=== PATIENT | male | born 2000 | race American Indian/Alaskan Native ===

== ENCOUNTER 2021-06-17 15:21 | Emergency (ER) | payer SELFPAY ==
[2021-06-17] MEDS ORDERED: oxyCODONE /ACETAMINOPHEN 5-325MG TAB PO ONE (15:48)
[2021-06-17] MEDS ORDERED: TETANUS,DIPH,PERTUSS(ACELL) VACCINE 0.5 ML SYRINGE IM ONE (15:48)
[2021-06-17] MEDS ORDERED: SODIUM CHLORIDE 0.9% IRR 500 ML BOTTLE IR ONE (15:49)
[2021-06-17] MEDS ORDERED: SODIUM CHLORIDE 0.9% 1000 ML 1,000 ML IV ONE ×2 (16:09→17:28)
--- NOTE | 2021-06-17 16:14 | Emergency Department Report ---
ED General Adult HPI - General Chief complaint: Overdose Stated complaint: PASSED OUT Time Seen by Provider: 06/17/21 15:42 Source: patient Mode of arrival: Ambulatory Limitations: No Limitations - History of Present Illness Initial comments: Patient is 20 years old male with no significant past medical history. Patient presented to the ER stating that he passed out. Upon further questioning patient stated that he was playing basketball but he was smoking marijuana. Patient is laughing inappropriately. Patient kept staring into the roof however he denied visual hallucination or auditory hallucination. No suicidal or homicidal ideation. Severity scale (0 -10): 0 - Related Data Previous Rx's Medication Instructions Recorded Last Taken Type hydrOXYzine PAMOATE [Vistaril] 25 mg PO BID PRN #60 capsule 06/21/21 Unknown Rx risperiDONE [RisperDAL] 1.5 mg PO BID #90 tablet 06/21/21 Unknown Rx traZODone [Desyrel] 50 mg PO QHS #30 tab 06/21/21 Unknown Rx Allergies Allergy/AdvReac Type Severity Reaction Status Date / Time No Known Allergies Allergy Verified 06/17/21 16:21 ED Review of Systems ROS: Stated complaint: PASSED OUT Other details as noted in HPI Comment: All other systems reviewed and negative Constitutional: denies: chills, fever Respiratory: denies: cough, shortness of breath, SOB with exertion Cardiovascular: denies: chest pain, palpitations Gastrointestinal: denies: abdominal pain, nausea, vomiting Psychiatric: anxiety, visual hallucinations. denies: homicidal thoughts, suicidal thoughts ED Past Medical Hx - Medications Home Medications: Home Medications Medication Instructions Recorded Confirmed Last Taken Type hydrOXYzine PAMOATE [Vistaril] 25 mg PO BID PRN #60 capsule 06/21/21 Unknown Rx risperiDONE [RisperDAL] 1.5 mg PO BID #90 tablet 06/21/21 Unknown Rx traZODone [Desyrel] 50 mg PO QHS #30 tab 06/21/21 Unknown Rx ED Physical Exam - General Limitations: No Limitations General appearance: alert, anxious, other (agitated) - Head Head exam: Present: atraumatic, normocephalic, normal inspection - Eye Eye exam: Present: normal appearance - ENT ENT exam: Present: normal exam, normal orophraynx, mucous membranes moist - Neck Neck exam: Present: normal inspection, full ROM. Absent: tenderness, meningismus - Respiratory Respiratory exam: Present: normal lung sounds bilaterally - Cardiovascular Cardiovascular Exam: Present: regular rate, normal rhythm, normal heart sounds - GI/Abdominal GI/Abdominal exam: Present: soft, normal bowel sounds. Absent: distended, tenderness, guarding, rebound, rigid, mass, bruit, pulsatile mass, hernia - Extremities Exam Extremities exam: Present: normal inspection, full ROM, normal capillary refill. Absent: tenderness - Back Exam Back exam: Present: normal inspection, full ROM. Absent: CVA tenderness (R), CVA tenderness (L) - Neurological Exam Neurological exam: Present: alert, oriented X3, CN II-XII intact, normal gait, reflexes normal - Psychiatric Psychiatric exam: Present: agitated, anxious. Absent: homicidal ideation, suicidal ideation - Skin Skin exam: Present: warm, intact, normal color ED Course Vital Signs 06/17/21 06/17/21 06/17/21 15:56 16:17 17:01 Temperature 97.3 F L Pulse Rate 86 75 Respiratory 16 16 Rate Blood Pressure 126/103 Blood Pressure 143/87 [Left] O2 Sat by Pulse 100 100 100 Oximetry 06/17/21 06/17/21 06/17/21 18:40 19:06 21:04 Temperature 97.2 F L Pulse Rate 89 79 Respiratory 18 16 Rate Blood Pressure Blood Pressure 123/67 120/71 [Left] O2 Sat by Pulse 100 100 98 Oximetry 06/18/21 06/18/21 06/19/21 02:22 20:00 01:00 Temperature 97.7 F 98.7 F 98.5 F Pulse Rate 77 84 61 Respiratory 16 20 18 Rate Blood Pressure Blood Pressure 107/74 127/74 147/79 [Left] O2 Sat by Pulse 100 98 100 Oximetry 06/19/21 06/19/21 06/19/21 08:11 09:42 19:52 Temperature 98.0 F 98.8 F Pulse Rate 78 87 Respiratory 20 18 Rate Blood Pressure Blood Pressure 134/76 116/93 [Left] O2 Sat by Pulse 100 100 100 Oximetry 06/20/21 06/20/21 06/21/21 10:46 20:08 07:00 Temperature 98.5 F 97.5 F L 97.9 F Pulse Rate 89 74 82 Respiratory 18 18 20 Rate Blood Pressure Blood Pressure 110/80 126/69 129/73 [Left] O2 Sat by Pulse 100 100 100 Oximetry 06/21/21 09:00 Temperature Pulse Rate Respiratory Rate Blood Pressure Blood Pressure [Left] O2 Sat by Pulse 100 Oximetry - Reevaluation(s) Reevaluation #1: 06/17/21 18:28 After receiving Ativan. Patient became more oriented and able to give more history. Patient stated that he was in the gym and he passed out and people at the gym to come to the bathroom showers walk up. Patient stated that he smoked marijuana every now and then but he denied any recent use. When he was questioned again about auditory hallucination patient admitted that he is having auditory hallucination. The nurse called patient grandmother. Patient grandmother stated that patient has mental issues with mood swings. She also reported that his father committed suicide in skilled nursing and his mother 3 years ago. She also informed the nurse that he supposed to be on antipsychotic medication but he is not taking it. Patient is obviously in acute psychosis. Patient put on 1013 and moved to psychiatric area. ED Medical Decision Making - Lab Data Result diagrams: 06/17/21 16:16 06/17/21 16:16 - Medical Decision Making Patient is 20 years old male with no significant past medical history. Patient presented to the ER stating that he passed out. Upon further questioning patient stated that he was playing basketball but he was smoking marijuana. Patient is laughing inappropriately. Patient kept staring into the roof however he denied visual hallucination or auditory hallucination. No suicidal or homicidal ideation. After receiving Ativan. Patient became more oriented and able to give more history. Patient stated that he was in the gym and he passed out and people at t he gym to come to the bathroom showers walk up. Patient stated that he smoked marijuana every now and then but he denied any recent use. When he was questioned again about auditory hallucination patient admitted that he is having auditory hallucination. The nurse called patient grandmother. Patient grandmother stated that patient has mental issues with mood swings. She also reported that his father committed suicide in skilled nursing and his mother 3 years ago. She also informed the nurse that he supposed to be on antipsychotic medication but he is not taking it. Patient is obviously in acute psychosis. Patient put on 1013 and moved to psychiatric area. Labs reviewed and is unremarkable. Patient is medically cleared to be evaluated by our psychiatric team. Critical care attestation.: If time is entered above; I have spent that time in minutes in the direct care of this critically ill patient, excluding procedure time. ED Disposition Clinical Impression: Acute psychosis, COVID-19 Disposition: 01 HOME / SELF CARE / HOMELESS Is pt being admited?: No Condition: Stable Instructions: Psychosis, Prevent the Spread of COVID-19 if You Are Sick - [facility] Additional Instructions: Professional and Agency Contacts To help Resolve Crises(01/05) ID Crisis Line: Suicide Prevention Line: Crisis Text Line: Text START to [phone] Emergency: 911 Outpatient COMMUNITY Behavioral Health Resources: [facility]: [facility] [address], [place] [address] OMER: [facility] [address] [place] [address] LUH: [facility] [address] [place] [address] Monday thru Monday - 8am - 5pm [facility] Service Address: [address] [place] [address] [facility]: [facility] Address: [address] [place] [address] Monday thru Monday- 7am-2pm [facility] Address: [address] [place] [address] Monday thru Monday: 8:30AM-5PM Prescriptions: traZODone [Desyrel] 50 mg PO QHS #30 tab risperiDONE [RisperDAL] 1.5 mg PO BID #90 tablet hydrOXYzine PAMOATE [Vistaril] 25 mg PO BID PRN #60 capsule PRN Reason: Anxiety Referrals: PRIMARY CARE, [Primary Care Provider] - 3-5 Days
[2021-06-17 16:47] LABS: Basophils % (Auto) 0.2 % (0.0-1.8); Eosinophils % (Auto) 0.4 % (0.0-4.3); Lymphocytes # (Auto) 2.8 K/mm3 (1.2-5.4); Lymphocytes % (Auto) 28.7 % (13.4-35.0); Mean Corpuscular Volume 95 fl (84-94); Monocytes % (Auto) 10.4 % (0.0-7.3); Platelet Count 267 K/mm3 (140-440); Red Blood Count 4.61 M/mm3 (3.65-5.03); Red Cell Distribution Width 13.1 % (13.2-15.2)
[2021-06-17 16:53] LABS: BUN/Creatinine Ratio 17; Blood Urea Nitrogen 19 mg/dL (9-20); Calcium 10.5 mg/dL (8.4-10.2); Hemolysis Index 57
[2021-06-17 16:57] LABS: Alanine Aminotransferase 16 units/L (7-56); Albumin 5.2 g/dL (3.9-5)
[2021-06-17 17:00] LABS: Bilirubin,Direct < 0.2 mg/dL (0-0.2)
[2021-06-17] MEDS ORDERED: LORazepam 2 MG/ML VIAL IV ONE (17:53)
[2021-06-17 17:55] LABS: Hematocrit 43.8 % (35.5-45.6); Hemoglobin 16.4 gm/dl (11.8-15.2)
[2021-06-17 17:58] LABS: Mean Corpuscular HGB Conc 38 % (32-34)
[2021-06-17 18:26] LABS: Bilirubin,Urine NEG (Negative); Blood,Urine NEG (Negative); Color,Urine Yellow (Yellow); Mucus,Urine 3+ /HPF
[2021-06-17 18:28] LABS: Amphetamine Screen,Urine Negative; Benzodiazepines Screen,Urine Negative; Cocaine Screen,Urine Negative; Methadone Screen,Urine Negative; Opiate Screen,Urine Negative
[2021-06-17 18:52] LABS: Cannabinoid Screen,Urine Positive
[2021-06-17] MEDS ORDERED: ALPRAZolam 1 MG TAB PO ONE (19:48)
--- NOTE | 2021-06-18 10:23 | Event Note ---
No acute needs at this time. Vital signs stable. Patient is medically clear for psychiatric care. Will defer to psychiatriy team for further treatment recommendations.
--- NOTE | 2021-06-18 11:11 | Consultation ---
History of Present Illness - Reason for Consult Consult date: 06/18/21 Reason for consult: psychosis - History of Present Psychiatric Illness Per ER Note: Patient is 20 years old male with no significant past medical history. Patient presented to the ER stating that he passed out. Upon further questioning patient stated that he was playing basketball but he was smoking marijuana. Patient is laughing inappropriately. Patient kept staring into the roof however he denied visual hallucination or auditory hallucination. No suicidal or homicidal ideation. Kevin Sams is a 20y/o male patient who states he was brought to the ER for sleeping on the ground. He denies hallucinations but appear to be responding to internal stimuli. The patient says he was leaving [employer]. He is laughing inappropriately and staring intensely at times. He is also gazing at the ceiling. I ask him what is he looking it, he starts laughing. I asked the patient why was he sleeping on the ground, he just laughs. He denies SI/HI. The patient denies any illicit drug use outside of THC. He says he was on Ripserodone but he wasn't sure what it was for. PAST PSYCHIATRIC HISTORY: Diagnoses: unsure Suicide attempts or Self-harm behavior: Denies Prior psychiatric hospitalizations: Denies Substance Abuse history: Denies Previous psychiatric medications tried: risperidone Outpatient treatment: yes PAST MEDICAL HISTORY: None reported or document Family Psychiatric History: None reported or documented SOCIAL HISTORY Marital Status: single Living Arrangements: Lives with grandma Employment Status: Unemployed Access to guns/weapons: Yes Education: History of Abuse:Denies Legal History: Denies REVIEW OF SYSTEMS Constitutional: Negative for weight loss ENT: Negative for stridor Respiratory: Negative for cough or hemoptysis All other systems reviewed and are negative MENTAL STATUS EXAMINATION General Appearance and Behavior: Age appropriate, good hygiene, wearing appropriate clothes. Cooperation: Cooperative Psychomotor Behavior: Psychomotor normal Mood: "OK" Affect and affective range: laughing inappropriately Thought Process: responding to internal stimuli Thought Content: hallucinations Speech: Normal volume, Regular rate and rhythm, Suicidal Ideation: Denies Homicidal Ideation: Denies Hallucinations: auditory Delusions: None Impulse Control: limited Insight and Judgment: Limited Memory: Limited Attention: Distractible Orientation: alert and oriented Assessment and Plan (1)Acute Psychosis Treatment Plan 1013 Risperidone 0.5mg po BID Trazodone 50mg po qhs Sitter: per primary Medical: per primary Disposition: Recommend acute psychiatric inpatient treatment Will follow Case staffed with Dr. Vang Medications and Allergies Allergies Allergy/AdvReac Type Severity Reaction Status Date / Time No Known Allergies Allergy Verified 06/17/21 16:21 Home Medications Medication Instructions Recorded Confirmed Last Taken Type No Known Home Medications [No 06/17/21 06/17/21 Unknown History Reported Home Medications] Mental Status Exam - Vital signs Last Vital Signs Temp 97.7 F 06/18/21 02:22 Pulse 77 06/18/21 02:22 Resp 16 06/18/21 02:22 BP 107/74 06/18/21 02:22 Pulse Ox 100 06/18/21 02:22 Results Result Diagrams: 06/17/21 16:16 06/17/21 16:16 Abnormal lab results 06/17/21 06/17/21 06/17/21 Range/Units 16:16 16:16 16:16 Hgb 16.4 H (11.8-15.2) gm/dl MCV 95 H (84-94) fl MCH 36 H (28-32) pg MCHC 38 H* (32-34) % RDW 13.1 L (13.2-15.2) % [place] % (Auto) 10.4 H (0.0-7.3) % [place] # (Auto) 1.0 H (0.0-0.8) K/mm3 Calcium 10.5 H (8.4-10.2) mg/dL Albumin (3.9-5) g/dL Ur Specific [place] (1.003-1.030) Salicylates < 0.3 L (2.8-20.0) mg/dL Acetaminophen (10.0-30.0) ug/mL 06/17/21 06/17/21 06/17/21 Range/Units 16:16 16:16 18:08 Hgb (11.8-15.2) gm/dl MCV (84-94) fl MCH (28-32) pg MCHC (32-34) % RDW (13.2-15.2) % [place] % (Auto) (0.0-7.3) % [place] # (Auto) (0.0-0.8) K/mm3 Calcium (8.4-10.2) mg/dL Albumin 5.2 H (3.9-5) g/dL Ur Specific [place] 1.031 H (1.003-1.030) Salicylates (2.8-20.0) mg/dL Acetaminophen 5.0 L (10.0-30.0) ug/mL All other labs normal.
[2021-06-18] MEDS: risperiDONE 0.25 MG TAB PO SCH (13:20)
--- NOTE | 2021-06-19 10:25 | Progress Note ---
Subjective - Reason for Consult Consult date: 06/19/21 Reason for consult: psychosis - Chief Complaint Chief complaint: The patient was seen today, he is laughing out loud, he is staring at the ceiling at times. He is responding to internal stimuli. He verbalizes "hearing things sometimes" but burst into laughter when I ask him what was he hearing. He denies SI/HI. The nursing staff says they patient has been acting psychotic and bizarrely; flipping out of his chair impulsively and laying on the floor, laughing out loud. REVIEW OF SYSTEMS Constitutional: Negative for weight loss ENT: Negative for stridor Respiratory: Negative for cough or hemoptysis All other systems reviewed and are negative MENTAL STATUS EXAMINATION General Appearance and Behavior: Age appropriate, good hygiene, wearing a ppropriate clothes. Cooperation: Cooperative Psychomotor Behavior: Psychomotor normal Mood: "OK" Affect and affective range: laughing inappropriately Thought Process: responding to internal stimuli Thought Content: hallucinations Speech: Normal volume, Regular rate and rhythm, Suicidal Ideation: Denies Homicidal Ideation: Denies Hallucinations: auditory Delusions: None Impulse Control: limited Insight and Judgment: Limited Memory: Limited Attention: Distractible Orientation: alert and oriented Assessment and Plan (1)Acute Psychosis Treatment Plan 1013 Increased Risperidone 1mg po BID Vistaril 25mg po BID Sitter: per primary Medical: per primary Disposition: Recommend acute psychiatric inpatient treatment Will follow Case staffed with Dr. Vang Mental Status Exam - Vital signs Last Vital Signs Temp 98.0 F 06/19/21 08:11 Pulse 78 06/19/21 08:11 Resp 20 06/19/21 08:11 BP 134/76 06/19/21 08:11 Pulse Ox 100 06/19/21 09:42
[2021-06-19] MEDS: risperiDONE 1 MG TAB PO SCH ×2 (11:25→22:58)
[2021-06-19] MEDS: hydrOXYzine PAMOATE 25 MG CAP PO SCH ×2 (11:26→22:58)
[2021-06-19] MEDS: risperiDONE 0.25 MG TAB PO SCH (11:26)
[2021-06-19] MEDS ORDERED: LORazepam 2 MG/ML VIAL IM PRN (12:11)
--- NOTE | 2021-06-19 12:13 | Event Note ---
Date: 06/19/21 S: Patient reported to have bizarre behavior overnight including rolling around on the ground. No other events O: Vital Signs - 24 hr 06/18/21 06/19/21 06/19/21 20:00 01:00 08:11 Temperature 98.7 F 98.5 F 98.0 F Pulse Rate 84 61 78 Respiratory 20 18 20 Rate Blood Pressure 127/74 147/79 134/76 [Left] O2 Sat by Pulse 98 100 100 Oximetry 06/19/21 09:42 Temperature Pulse Rate Respiratory Rate Blood Pressure [Left] O2 Sat by Pulse 100 Oximetry A: Acute psychosis P: 1013/awaiting inpatient psych, Ativan prn ordered
[2021-06-19] MEDS: traZODone 50 MG TAB PO SCH (22:58)
[2021-06-20] MEDS: hydrOXYzine PAMOATE 25 MG CAP PO SCH ×2 (10:00→22:04)
--- NOTE | 2021-06-20 10:02 | Consultation ---
History of Present Illness - Reason for Consult Consult date: 06/20/21 Reason for consult: psychosis - Chief Complaint Chief complaint: Per Nurse Note: pt inappropriately laughs, when asked questions pt just repeats the question back, pt was observed by nurse lying on floor spinning around on back and put legs in the air, pt then got off the floor and laid back down on recliner, at this time pt is lying on recliner with blanket covering his body, respirations even and unlabored no signs of distress will continue to monitor The patient was seen today, he is not laughing as much today. I ask him why was he laughing. He says "I'm not sure." The patient denies SI/HI. He verbalizes hearing voices of people "just talking to me." REVIEW OF SYSTEMS Constitutional: Negative for weight loss ENT: Negative for stridor Respiratory: Negative for cough or hemoptysis All other systems reviewed and are negative MENTAL STATUS EXAMINATION General Appearance and Behavior: Age appropriate, good hygiene, wearing appropriate clothes. Cooperation: Cooperative Psychomotor Behavior: Psychomotor normal Mood: "OK" Affect and affective range: laughing inappropriately Thought Process: responding to internal stimuli Thought Content: hallucinations Speech: Normal volume, Regular rate and rhythm, Suicidal Ideation: Denies Homicidal Ideation: Denies Hallucinations: auditory Delusions: None Impulse Control: limited Insight and Judgment: Limited Memory: Limited Attention: Distractible Orientation: alert and oriented Assessment and Plan (1)Acute Psychosis Treatment Plan 1013 Increased Risperidone 1.5mg po BID Sitter: per primary Medical: per primary Disposition: Recommend acute psychiatric inpatient treatment Will follow Case staffed with Dr. Vang Medications and Allergies Allergies Allergy/AdvReac Type Severity Reaction Status Date / Time No Known Allergies Allergy Verified 06/17/21 16:21 Home Medications Medication Instructions Recorded Confirmed Last Taken Type No Known Home Medications [No 06/17/21 06/17/21 Unknown History Reported Home Medications] Active Meds: Active Medications Hydroxyzine Pamoate (Hydroxyzine Pamoate 25 Mg Cap) 25 mg PO BID [facility] Last Admin: 06/19/21 22:58 Dose: 25 mg Documented by: Lorazepam (Lorazepam 2 Mg/Ml Vial) 2 mg IM Q8H PRN PRN Reason: Agitation Risperidone (Risperidone 1 Mg Tab) 1 mg PO BID [facility] Last Admin: 06/19/21 22:58 Dose: 1 mg Documented by: Trazodone HCl (Trazodone 50 Mg Tab) 50 mg PO QHS [facility] Last Admin: 06/19/21 22:58 Dose: 50 mg Documented by: Mental Status Exam - Vital signs Last Vital Signs Temp 98.8 F 06/19/21 19:52 Pulse 87 06/19/21 19:52 Resp 18 06/19/21 19:52 BP 116/93 06/19/21 19:52 Pulse Ox 100 06/19/21 19:52 Results Result Diagrams: 06/17/21 16:16 06/17/21 16:16 Abnormal lab results 06/19/21 Range/Units Unknown Coronavirus (PCR) Positive A (Negative) All other labs normal.
--- NOTE | 2021-06-20 10:41 | Event Note ---
Date: 06/20/21 S: No events reported overnight O: Vital Signs - 24 hr 06/19/21 06/20/21 19:52 10:46 Temperature 98.8 F 98.5 F Pulse Rate 87 89 Respiratory 18 18 Rate Blood Pressure 116/93 110/80 [Left] O2 Sat by Pulse 100 100 Oximetry Chest x-ray (read by myself)-no focal infiltrates, no pneumothorax [facility] [address] [place] [address] XRay Report Signed Patient: ANJUM RING MR#: [id number] : 2000 Acct:[id number] Age/Sex: 20 / M ADM Date: 06/17/21 Loc: ED Attending Dr: Ordering Physician: CURT CHAU MD Date of Service: 06/20/21 Procedure(s): XR chest routine 2V Accession Number(s): [id number] cc: CURT CHAU MD Fluoro Time In Minutes: CHEST 2 VIEWS INDICATION / CLINICAL INFORMATION: Covid positive. COMPARISON: None available. FINDINGS: SUPPORT DEVICES: None. HEART / MEDIASTINUM: No significant abnormality. LUNGS / PLEURA: No significant pulmonary or pleural abnormality. No pneumothorax. ADDITIONAL FINDINGS: No significant additional findings. IMPRESSION: 1. No acute findings. No evidence of pneumonia at this time. Signer Name: Theresa Tipton MD Signed: 06/20/2021 11:09 AM Workstation Name: [id number] Transcribed By: JR Dictated By: Theresa Tipton MD Electronically Authenticated By: Theresa Tipton MD Signed Date/Time: 06/20/21 110 DD/ 1108 A: Acute psychosis/Covid positive P: Chest x-ray, psych will continue to round until the patient is cleared. 1013/awaiting psych inpatient
--- NOTE | 2021-06-20 11:13 | XRay Report ---
CHEST 2 VIEWS INDICATION / CLINICAL INFORMATION: Covid positive. COMPARISON: None available. FINDINGS: SUPPORT DEVICES: None. HEART / MEDIASTINUM: No significant abnormality. LUNGS / PLEURA: No significant pulmonary or pleural abnormality. No pneumothorax. ADDITIONAL FINDINGS: No significant additional findings. IMPRESSION: 1. No acute findings. No evidence of pneumonia at this time. Signer Name: Theresa Tipton MD Signed: 06/20/2021 11:09 AM Workstation Name: [id number]
[2021-06-20] MEDS: risperiDONE 1 MG TAB PO SCH ×2 (11:31→21:39)
[2021-06-20] MEDS: traZODone 50 MG TAB PO SCH (21:38)
[2021-06-21 07:31] VITALS: BP 129/73
--- NOTE | 2021-06-21 09:24 | Progress Note ---
Subjective - Reason for Consult Consult date: 06/21/21 Reason for consult: psychosis - Chief Complaint Chief complaint: The patient was seen today, he is calm and cooperative. He is not laughing like yesterday, but he is smiling. He is polite. He greets me with "good morning" and "how you doing." The patient says he slept well. He denies SI/HI or hallucinations of any kind. The sitter today says the patient has been fine, with no behavioral issues or concerns. REVIEW OF SYSTEMS Constitutional: Negative for weight loss ENT: Negative for stridor Respiratory: Negative for cough or hemoptysis All other systems reviewed and are negative MENTAL STATUS EXAMINATION General Appearance and Behavior: Age appropriate, good hygiene, wearing appropriate clothes. Cooperation: Cooperative Psychomotor Behavior: Psychomotor normal Mood: good Affect and affective range: congruent with stated mood Thought Process: goal oriented Thought Content: None Speech: Normal volume, Regular rate and rhythm, Suicidal Ideation: Denies Homicidal Ideation: Denies Hallucinations: None Delusions: None Impulse Control: limited Insight and Judgment: Limited Memory: Limited Attention: Attentive Orientation: alert and oriented Assessment and Plan (1)Acute Psychosis Treatment Plan D/c 1013 Trazodone 50mg po qhs Vistaril 25mg po BID Risperidone 1.5mg po BID Sitter: per primary Medical: per primary Disposition: Do not recommend acute psychiatric inpatient treatment Will sign off. Thanks. Case staffed with Dr. Vang Mental Status Exam - Vital signs Last Vital Signs Temp 97.9 F 06/21/21 07:00 Pulse 82 06/21/21 07:00 Resp 20 06/21/21 07:00 BP 129/73 06/21/21 07:00 Pulse Ox 100 06/21/21 07:00
[2021-06-21] MEDS: hydrOXYzine PAMOATE 25 MG CAP PO SCH (10:35)
[2021-06-21] MEDS: risperiDONE 1 MG TAB PO SCH (10:35)
--- NOTE | 2021-06-21 11:32 | Event Note ---
Date: 06/21/21 Patient has been seen and evaluated by psychiatry team. 1013 has been rescinded. He will be discharged with outpatient resources.
== END 2021-06-21 11:45 | disposition home or self-care (01) ==
LOC: ED 15:21
DX: F23 Brief psychotic disorder (principal); U07.1 COVID-19
CPT/HCPCS: 36415; 71046; 80048; 80076; 80307; 81001; 85025; 96361; 96374; 99285; J2060; J7030; Q0177; U0003; 80320; 99284; G0480

== ENCOUNTER 2021-06-23 18:11 | Emergency (ER) | payer SELFPAY ==
--- NOTE | 2021-06-23 18:24 | Emergency Department Report ---
ED Psych HPI - General Stated Complaint: PSYC EPISODE Time Seen by Provider: 06/23/21 18:24 Source: EMS Limitations: Altered Mental Status - History of Present Illness Initial Comments: Patient was brought in by EMS due to psychiatric issues. Apparently, he was recently diagnosed with psychiatric problems. Medications were prescribed. Medications were not available at the pharmacy today and so they have not been started. Patient became agitated. He was thrashing about. EMS did get called to transport the patient because he was not controllable. They administered Haldol 5 mg as well as Versed 5 mg. Upon arrival, patient is more calm and sedate. However, he cannot provide history due to the altered mental status created by the medications. EMS states that the patient was severely agitated. He was trying to come up off the bed. He was mumbling incoherently. He was trying to take off his clothes. - Related Data Previous Rx's Medication Instructions Recorded Last Taken Type hydrOXYzine PAMOATE [Vistaril] 25 mg PO BID PRN #60 capsule 06/21/21 Unknown Rx risperiDONE [RisperDAL] 1.5 mg PO BID #90 tablet 06/21/21 Unknown Rx traZODone [Desyrel] 50 mg PO QHS #30 tab 06/21/21 Unknown Rx Allergies Allergy/AdvReac Type Severity Reaction Status Date / Time No Known Allergies Allergy Verified 06/17/21 16:21 ED Review of Systems ROS: Stated complaint: PSYC EPISODE Other details as noted in HPI Comment: Unobtainable due to pts medical conditions (Altered mental status secondary to EMS medications) ED Past Medical Hx - Past Medical History Previous Medical History?: Yes Hx Psychiatric Treatment: Yes Additional medical history: Psychiatric disease per EMS - Surgical History Additional Surgical History: Cannot be obtained secondary to altered mental status - Family History Family history: other (Cannot be obtained secondary to altered mental status) - Social History Smoking Status: Never Smoker Other Social History: Cannot be obtained secondary to altered mental status - Medications Home Medications: Home Medications Medication Instructions Recorded Confirmed Last Taken Type hydrOXYzine PAMOATE [Vistaril] 25 mg PO BID PRN #60 capsule 06/21/21 Unknown Rx risperiDONE [RisperDAL] 1.5 mg PO BID #90 tablet 06/21/21 Unknown Rx traZODone [Desyrel] 50 mg PO QHS #30 tab 06/21/21 Unknown Rx ED Physical Exam - General Limitations: Altered Mental Status General appearance: alert, in no apparent distress, other (Patient appears to be confused with roving eye movements likely secondary to medication.) - Head Head exam: Present: atraumatic, normocephalic, normal inspection - Eye Eye exam: Present: normal appearance, EOMI. Absent: scleral icterus, conjunctival injection - ENT ENT exam: Present: normal exam, normal orophraynx, mucous membranes moist - Neck Neck exam: Present: normal inspection, full ROM. Absent: lymphadenopathy - Respiratory Respiratory exam: Present: normal lung sounds bilaterally. Absent: respiratory distress - Cardiovascular Cardiovascular Exam: Present: regular rate, normal rhythm - GI/Abdominal GI/Abdominal exam: Present: soft, other (Flat) - Extremities Exam Extremities exam: Present: normal inspection, normal capillary refill. Absent: pedal edema - Back Exam Back exam: Present: normal inspection - Neurological Exam Neurological exam: Present: alert, altered, reflexes normal - Psychiatric Psychiatric exam: Present: other (Altered and sedated) - Skin Skin exam: Present: warm, dry ED Course Vital Signs 06/23/21 18:31 Pulse Rate 72 Respiratory 12 Rate Blood Pressure 121/82 O2 Sat by Pulse 98 Oximetry - Reevaluation(s) Reevaluation #1: 06/23/21 18:24 Patient was seen upon EMS arrival. Labs were ordered. Reevaluation #2: 06/23/21 19:44 Psychiatric evaluation and disposition are pending. Clinically, the patient would be medically cleared. Critical Care Time: No Critical care attestation.: If time is entered above; I have spent that time in minutes in the direct care of this critically ill patient, excluding procedure time. ED Disposition Clinical Impression: Agitation Disposition: 30 STILL A PATIENT Is pt being admited?: No Does the pt Need Aspirin: No Condition: Stable
[2021-06-23 22:33] LABS: BUN/Creatinine Ratio 15; Blood Urea Nitrogen 15 mg/dL (9-20); Calcium 9.4 mg/dL (8.4-10.2); Hemolysis Index 3
[2021-06-23 22:40] LABS: Hematocrit 41.6 % (35.5-45.6); Hemoglobin 15.4 gm/dl (11.8-15.2); Mean Corpuscular HGB Conc 37 % (32-34); Mean Corpuscular Volume 95 fl (84-94); Platelet Count 260 K/mm3 (140-440); Red Blood Count 4.39 M/mm3 (3.65-5.03); Red Cell Distribution Width 12.8 % (13.2-15.2)
--- NOTE | 2021-06-24 00:10 | Event Note ---
Date: 06/24/21 Awaiting remainder the patient's laboratory values for medical clearance
--- NOTE | 2021-06-24 09:04 | Progress Note ---
Subjective - Reason for Consult Consult date: 06/24/21 Reason for consult: psychosis - Chief Complaint Chief complaint: Per ER Note: Patient was brought in by EMS due to psychiatric issues. Apparently, he was recently diagnosed with psychiatric problems. Medications were prescribed. Medications were not available at the pharmacy today and so they have not been started. Patient became agitated. He was thrashing about. EMS did get called to transport the patient because he was not controllable. They administered Haldol 5 mg as well as Versed 5 mg. Upon arrival, patient is more calm and sedate. However, he cannot provide history due to the altered mental status created by the medications. EMS states that the patient was severely agitated. He was trying to come up off the bed. He was mumbling incoherently. He was trying to take off his clothes. This patient was seen and cleared by me the other day. He presents to the ER for agitation and psychosis. During my evaluation of the patient today, he is calm and cooperative. He is grinning inappropriately. He is not forthcoming. He tells me that he was at [facility] when he was brought by the ambulance. He told me he was at [facility] the other day when he was here. He says "I guess the lady was asking me questions and I didn't know them." I ask him what was he doing at [facility] that made them think he was aggressive or confused. He replies "what, I can't be at [facility]?" The patient then laughs. He denies SI/HI. He verbalizes hearing voices that's "just saying stuff." PAST PSYCHIATRIC HISTORY: Diagnoses: unsure Suicide attempts or Self-harm behavior: Denies Prior psychiatric hospitalizations: Denies Substance Abuse history: Denies Previous psychiatric medications tried: risperidone Outpatient treatment: yes PAST MEDICAL HISTORY: None reported or document Family Psychiatric History: None reported or documented SOCIAL HISTORY Marital Status: single Living Arrangements: Lives with grandma Employment Status: Unemployed Access to guns/weapons: Yes Education: History of Abuse:Denies Legal History: Denies REVIEW OF SYSTEMS Constitutional: Negative for weight loss ENT: Negative for stridor Respiratory: Negative for cough or hemoptysis All other systems reviewed and are negative MENTAL STATUS EXAMINATION General Appearance and Behavior: Age appropriate, good hygiene, wearing appropriate clothes. Cooperation: Cooperative Psychomotor Behavior: Psychomotor normal Mood: "good" Affect and affective range: laughing inappropriately Thought Process: responding to internal stimuli Thought Content: hallucinations Speech: Normal volume, Regular rate and rhythm, Suicidal Ideation: Denies Homicidal Ideation: Denies Hallucinations: auditory Delusions: None Impulse Control: limited Insight and Judgment: Limited Memory: Limited Attention: Distractible Orientation: alert and oriented Assessment and Plan (1)Acute Psychosis Treatment Plan 1013 Risperidone 1mg po BID Trazodone 50mg po qhs Depakote DR 125mg po BID Geodon 20mg IM q6h prn agitation Sitter: per primary Medical: per primary Disposition: Recommend acute psychiatric inpatient treatment Will follow Case staffed with Dr. Vang Mental Status Exam - Vital signs Last Vital Signs Temp 97.5 F L 06/23/21 21:00 Pulse 72 06/23/21 21:00 Resp 20 06/23/21 21:00 BP 141/72 06/23/21 21:00 Pulse Ox 99 06/23/21 21:00
[2021-06-24] MEDS ORDERED: ZIPRASIDONE MESYLATE 20 MG VIAL IM PRN (09:13)
[2021-06-24] MEDS: risperiDONE 1 MG TAB PO SCH ×2 (10:15→22:34)
[2021-06-24] MEDS: DIVALPROEX DR 125 MG TAB PO SCH ×2 (10:15→22:34)
[2021-06-24] MEDS ORDERED: LORazepam 2 MG/ML VIAL IM PRN (10:25)
[2021-06-24] MEDS ORDERED: diphenhydrAMINE 25 MG CAP PO PRN (10:25)
--- NOTE | 2021-06-24 10:28 | Event Note ---
Date: 06/24/21 The patient was evaluated in the emergency department for symptoms described in the history of present illness. He/she was evaluated in the context of the global COVID-19 pandemic, which necessitated consideration that the patient might be at risk for infection with the virus that causes COVID-19. Institutional protocols and algorithms that pertain to the evaluation of patients at risk for COVID-19 are in a state of rapid change based on information released by regulatory bodies including the CDC and federal and state organizations. These policies and algorithms were followed during the patient's care in the emergency department. Please note that these policies, procedures and recommendations changed on a rapid basis. ER documentation, psychiatric documentation, nursing documentation reviewed and appreciated, in addition to laboratory studies and vital signs. Nursing team endorses no acute issues this morning. On my evaluation, the patient is resting comfortably on chair, and in no acute distress. He was deemed medically suitable for psychiatric placement disposition during his initial ER evaluation. Covid swab is ordered in anticipation of possible placement. 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 This patient does not appear to have an immediate medical contraindication at this time which would preclude psychiatric disposition, consultation and placement Vital Signs 06/23/21 06/23/21 06/24/21 18:31 21:00 10:22 Temperature 97.5 F L 99 F Pulse Rate 72 72 86 Respiratory 12 20 16 Rate Blood Pressure 121/82 Blood Pressure 141/72 111/82 [Left] O2 Sat by Pulse 98 99 100 Oximetry Lab Results 06/23/21 06/23/21 06/23/21 Range/Units 21:52 21:52 21:52 WBC (4.5-11.0) K/mm3 RBC (3.65-5.03) M/mm3 Hgb (11.8-15.2) gm/dl Hct (35.5-45.6) % MCV (84-94) fl MCH (28-32) pg MCHC (32-34) % RDW (13.2-15.2) % Plt Count (140-440) K/mm3 Sodium 139 (137-145) mmol/L Potassium 4.3 (3.6-5.0) mmol/L Chloride 104.3 (98-107) mmol/L Carbon Dioxide 27 (22-30) mmol/L Anion Gap 12 mmol/L BUN 15 (9-20) mg/dL Creatinine 1.0 (0.8-1.3) mg/dL Estimated GFR > 60 ml/min BUN/Creatinine Ratio 15 % Glucose 98 (75-100) mg/dL Calcium 9.4 (8.4-10.2) mg/dL TSH 1.170 (0.270-4.200) mlU/mL Plasma/Serum Alcohol < 0.01 (0-0.07) % 06/23/21 Range/Units 21:52 WBC 7.1 (4.5-11.0) K/mm3 RBC 4.39 (3.65-5.03) M/mm3 Hgb 15.4 H (11.8-15.2) gm/dl Hct 41.6 (35.5-45.6) % MCV 95 H (84-94) fl MCH 35 H (28-32) pg MCHC 37 H (32-34) % RDW 12.8 L (13.2-15.2) % Plt Count 260 (140-440) K/mm3 Sodium (137-145) mmol/L Potassium (3.6-5.0) mmol/L Chloride (98-107) mmol/L Carbon Dioxide (22-30) mmol/L Anion Gap mmol/L BUN (9-20) mg/dL Creatinine (0.8-1.3) mg/dL Estimated GFR ml/min BUN/Creatinine Ratio % Glucose (75-100) mg/dL Calcium (8.4-10.2) mg/dL TSH (0.270-4.200) mlU/mL Plasma/Serum Alcohol (0-0.07) %
[2021-06-24 21:00] LABS: Bilirubin,Urine NEG (Negative); Blood,Urine NEG (Negative); Color,Urine Yellow (Yellow); Mucus,Urine 1+ /HPF; Protein,Urine <15 mg/dL mg/dL (Negative)
[2021-06-24 21:06] LABS: Amphetamine Screen,Urine Negative; Cocaine Screen,Urine Negative; Methadone Screen,Urine Negative; Opiate Screen,Urine Negative
[2021-06-24 21:19] LABS: Benzodiazepines Screen,Urine Positive; Cannabinoid Screen,Urine Positive
[2021-06-24] MEDS ORDERED: traZODone 50 MG TAB PO SCH (22:00)
[2021-06-25] MEDS: DIVALPROEX DR 125 MG TAB PO SCH (09:45)
[2021-06-25] MEDS: risperiDONE 1 MG TAB PO SCH (09:45)
--- NOTE | 2021-06-25 10:18 | Event Note ---
No current issues. Awaiting treatment recommendations by psychiatric team. Patient is medically clear for psychiatric care. Silverman virus PCR test pending
[2021-06-25 10:33] VITALS: BP 108/76
--- NOTE | 2021-06-25 11:23 | Progress Note ---
Subjective - Reason for Consult Consult date: 06/25/21 Reason for consult: mental health evaluation - Chief Complaint Chief complaint: The patient was seen today in the seclusion room. The patient ststes he lives with his grand mother and did not want to go back home" I was hard headed and did not want to go home." The patient denies suicidal/homicidal ideation and denies hallucinations. REVIEW OF SYSTEMS Constitutional: Negative for weight loss ENT: Negative for stridor Respiratory: Negative for cough or hemoptysis All other systems reviewed and are negative MENTAL STATUS EXAMINATION General Appearance and Behavior: Age appropriate, good hygiene, wearing appropriate clothes. Cooperation: Cooperative Psychomotor Behavior: Psychomotor normal Mood: "good" Affect and affective range: laughing inappropriately Thought Process: responding to internal stimuli Thought Content: Denies Speech: Normal volume, Regular rate and rhythm, Suicidal Ideation: Denies Homicidal Ideation: Denies Hallucinations: Denies Delusions: None Impulse Control: limited Insight and Judgment: Limited Memory: Limited Attention: Distractible Orientation: alert and oriented Assessment and Plan (1)Acute Psychosis Treatment Plan DC 1013 Risperidone 1mg po BID Trazodone 50mg po qhs Depakote DR 125mg po BID Sitter: per primary Medical: per primary Disposition: Do not recommend Inpatient. Will sign off. The patient understands to that if suicidal/ homicidal ideation or any endangering thoughts arise, he patient should immediately seek for emergent assistance including but not limited to crisis hot line and emergency room. [facility] [employer] [facility] will provide patient with out patient resources. Will sign off. Case staffed with Dr. Vang Mental Status Exam - Vital signs Last Vital Signs Temp 98.0 F 06/25/21 08:30 Pulse 90 06/25/21 08:30 Resp 18 06/25/21 08:30 BP 108/76 06/25/21 08:30 Pulse Ox 99 06/24/21 21:26
== END 2021-06-25 15:25 | disposition home or self-care (01) ==
LOC: ED 18:11
DX: R45.1 Restlessness and agitation (principal); R41.82 Altered mental status, unspecified; Z20.822 Contact with and (suspected) exposure to COVID-19; Z79.899 Other long term (current) drug therapy
CPT/HCPCS: 36415; 80048; 80307; 81001; 84443; 85027; 99285; U0003; 80320; G0480

== ENCOUNTER 2022-01-07 11:55 | Emergency (ER) | payer SELFPAY ==
--- NOTE | 2022-01-07 15:15 | Emergency Department Report ---
ED General Adult HPI - General Chief complaint: Urogenital-Male Stated complaint: PENIS PAIN Source: EMS Mode of arrival: Ambulatory Limitations: No Limitations - History of Present Illness Initial comments: 21-year-old male presents to the ED complaining tingling sensation with superficial cut from shaving x1 week ago. Patient denies any sexual activity. He states last sexual activity x1 year and a half ago. He denies any penile discharge. Patient denies any pain to the area. Patient denies any drainage or swelling to area. Patient is alert and oriented x3. No acute distress noted. No ill appearance noted. -: This morning Severity scale (0 -10): 0 Associated Symptoms: denies other symptoms Treatments Prior to Arrival: none - Related Data Previous Rx's Medication Instructions Recorded Last Taken Type hydrOXYzine PAMOATE [Vistaril] 25 mg PO BID PRN #60 capsule 06/21/21 Unknown Rx risperiDONE [RisperDAL] 1.5 mg PO BID #90 tablet 06/21/21 Unknown Rx traZODone [Desyrel] 50 mg PO QHS #30 tab 06/21/21 Unknown Rx Allergies Allergy/AdvReac Type Severity Reaction Status Date / Time No Known Allergies Allergy Verified 06/17/21 16:21 ED Review of Systems ROS: Stated complaint: PENIS PAIN Other details as noted in HPI Constitutional: denies: chills, fever Eyes: denies: eye pain, eye discharge, vision change ENT: denies: ear pain, throat pain Respiratory: denies: cough, shortness of breath, wheezing Cardiovascular: denies: chest pain, palpitations Endocrine: no symptoms reported Gastrointestinal: denies: abdominal pain, nausea, diarrhea Genitourinary: denies: urgency, dysuria Musculoskeletal: denies: back pain, joint swelling, arthralgia Skin: denies: rash, lesions Neurological: denies: headache, weakness, paresthesias Psychiatric: denies: anxiety, depression Hematological/Lymphatic: denies: easy bleeding, easy bruising ED Past Medical Hx - Past Medical History Hx Psychiatric Treatment: Yes Additional medical history: Psychiatric disease per EMS - Surgical History Additional Surgical History: Cannot be obtained secondary to altered mental status - Social History Smoking Status: Never Smoker - Medications Home Medications: Home Medications Medication Instructions Recorded Confirmed Last Taken Type hydrOXYzine PAMOATE [Vistaril] 25 mg PO BID PRN #60 capsule 06/21/21 06/24/21 Unknown Rx risperiDONE [RisperDAL] 1.5 mg PO BID #90 tablet 06/21/21 06/24/21 Unknown Rx traZODone [Desyrel] 50 mg PO QHS #30 tab 06/21/21 06/24/21 Unknown Rx ED Physical Exam - General Limitations: No Limitations General appearance: alert, in no apparent distress - Head Head exam: Present: atraumatic, normocephalic - Eye Eye exam: Present: normal appearance - ENT ENT exam: Present: mucous membranes moist - Neck Neck exam: Present: normal inspection - Respiratory Respiratory exam: Present: normal lung sounds bilaterally. Absent: respiratory distress - Cardiovascular Cardiovascular Exam: Present: regular rate, normal rhythm. Absent: systolic murmur, diastolic murmur, rubs, gallop - GI/Abdominal GI/Abdominal exam: Present: soft, normal bowel sounds - Rectal Rectal exam: Present: deferred - External exam: Present: erythema (Penis areas noted to be shaved), other (Erythema noted beneath the penis) - Extremities Exam Extremities exam: Present: normal inspection - Back Exam Back exam: Present: normal inspection - Neurological Exam Neurological exam: Present: alert, oriented X3 - Psychiatric Psychiatric exam: Present: normal affect, normal mood - Skin Skin exam: Present: warm, dry, intact, normal color. Absent: rash ED Course Vital Signs 01/07/22 15:27 Temperature 98.6 F Pulse Rate 59 L Respiratory 16 Rate Blood Pressure 117/81 O2 Sat by Pulse 100 Oximetry ED Medical Decision Making - Medical Decision Making 21-year-old male presents to the ED complaining tingling sensation with superficial cut from shaving x1 week ago. Patient denies any sexual activity. He states last sexual activity x1 year and a half ago. He denies any penile discharge. Patient denies any pain to the area. Patient denies any drainage or swelling to area. Patient is alert and oriented x3. No acute distress noted. No ill appearance noted. Physical examination unremarkable. Patient has mild erythema noted under the penis area. He looks like he recently shaved. Instructed patient to have outpatient STD test drawn even though he have not had sex in over a year. No lesion or ulceration noted to the area. Rechecked the patient is resting quietly quietly and comfortable and feeling better. I discussed the results of diagnostic study, my clinical impression and the plan for further treatment with the patient. Patient agrees with plan and discharge at this present time. All question addressed. I have given the patient instruction regarding a diagnosis ,expectation ,follow- up and return precaution. I explained to the patient that emergent condition may arise and to return to the ED for new worsen and any new persisting condition. I have explained the importance of following up with the primary care physician or referral physician listed below has instructed. The patient verbalized understanding of discharge instruction. Critical care attestation.: If time is entered above; I have spent that time in minutes in the direct care of this critically ill patient, excluding procedure time. ED Disposition Clinical Impression: Folliculitis Disposition: 30 STILL A PATIENT Is pt being admited?: No Does the pt Need Aspirin: No Condition: Stable Additional Instructions: Follow-up with primary care doctor or outpatient setting to have STD test drawn Return to ED for any worsening symptom Apply Neosporin to the area Referrals: PRIMARY CARE [Primary Care Provider] - 3-5 Days [facility] [Provider Group] - 3-5 Days Forms: Work/School Release Form(ED)
[2022-01-07 15:29] VITALS: BP 117/81
== END 2022-01-07 16:17 | disposition still patient (30) ==
LOC: ED 11:55
DX: L73.9 Follicular disorder, unspecified (principal); Z79.899 Other long term (current) drug therapy
CPT/HCPCS: 99283